=== PATIENT | male | born 1965 | race Caucasian/White ===

== ENCOUNTER → 2021-10-09 07:44 | Outpatient (CLI) | payer OTHER, MEDICAID, SELFPAY | PROVIDERS: Visit Provider Student in an Organized Health Care Education/Training Program | DX: J02.9 Acute pharyngitis, unspecified (principal) | CPT/HCPCS: 87070; 87880 ==

== ENCOUNTER 2021-10-16 17:16 | Observation (INO) | payer OTHER, MEDICAID, SELFPAY ==
[2021-10-16] VITALS (7 sets, daily range): BP systolic 151–191; BP diastolic 91–101; PULSE 66–93; RESP 18–21; TEMP 36.6–36.7; O2SAT 95–98; BMI 25.9
--- NOTE | 2021-10-16 17:27 | DI.RAD.S_ITS ---
PROCEDURE: XR CHEST 1V INDICATIONS: chest pain TECHNIQUE: One view of the chest was acquired. COMPARISON: None. FINDINGS: Surgical changes and devices: None. Lungs and pleura: Lungs are clear. No pleural effusions or pneumothorax. Mediastinum: Mediastinal contours appear normal. Heart size is normal. Bones and chest wall: No suspicious bony lesions. Overlying soft tissues appear unremarkable. IMPRESSION: No acute cardiothoracic abnormality. Dictated by: Petar Rivera M.D. on 10/16/2021 at 18:36 Approved by: Petar Rivera M.D. on 10/16/2021 at 18:37
[2021-10-16 17:58] LABS: Add Manual Diff / Slide Review NO; Basophils Absolute Auto 0 /uL (0-100); Basophils Percent Auto 0.6 % (0-2); Eosinophils Absolute Auto 100 /uL (0-450); Eosinophils Percent Auto 1.2 % (2-4); Hematocrit 43.1 % (41-53); Hemoglobin 15.3 g/dL (13.5-17.5); Lymphocytes Absolute Auto 1300 /uL (1100-4500); Lymphocytes Percent Auto 19.1 % (25-40); Mean Corpuscular HGB Conc 35.5 % (30-36); Mean Corpuscular Hemoglobin 30.3 PG (26-34); Mean Corpuscular Volume 85.3 fL (80-100); Monocytes Absolute Auto 700 /uL (0-900); Monocytes Percent Auto 9.3 % (3-14); Neutrophils Absolute Auto 4900 /uL (1500-7000); Neutrophils Percent Auto 69.8 % (50-75); Platelet Count 180 X10^3/uL (150-400); Red Blood Cell Count 5.05 X10^6/uL (4.5-5.9); Red Cell Distribution Width 13.7 % (11.6-14.8)
[2021-10-16 18:13] LABS: Alanine Aminotransferase 23 IU/L (<50); Albumin 4.4 g/dL (3.5-5.0); Albumin Globulin Ratio 1.5 (1.0-2.8); Alkaline Phosphatase 69 U/L (38-126); Aspartate Aminotransferase 30 IU/L (17-59); BUN Creatinine Ratio 22.3 (6-22); Bilirubin Total 0.5 mg/dL (0.2-1.3); Blood Urea Nitrogen 21 mg/dL (9-20); Calcium 9.2 mg/dL (8.4-10.2); Carbon Dioxide 25 mmol/L (22-32); Chloride 103 mmol/L (98-107); Creatine Kinase 102 U/L (55-170); Estimated Glomerular Filt Rate > 60 mL/min (>60); Glucose 126 mg/dL (70-100); Lipase 260 U/L (23-300); Potassium 3.9 mmol/L (3.4-5.1); Sodium 140 mmol/L (137-145); Total Protein 7.4 g/dL (6.3-8.2)
[2021-10-16 18:24] LABS: Troponin I < 0.012 ng/mL (0.01-0.034)
[2021-10-16 18:28] LABS: CKMB % Relative Index 1.6 % (1.5-5.0); Creatine Kinase MB 1.64 ng/mL (<2.37); HEMOLYSIS < 15 (0-50)
--- NOTE | 2021-10-16 18:53 | ED.CHESTPAIN ---
HPI - Chest Pain General Chief Complaint: Chest Pain Stated Complaint: chest pain Time Seen by Provider: 10/16/21 18:02 Source: patient Mode of arrival: Ambulatory Limitations: no limitations History of Present Illness HPI narrative: Patient here for exertional chest pain, occasional dizziness. No nausea or sweating. Occasional dyspnea. Currently no chest pain. Patient seen at urgent care last Monday for tonsillar abscess which he says has actually resolved. However chest discomfort he thinks it started maybe before the abscess. Father side of the family has heart disease. Patient denies any previous heart problems or stress test. Recently seen by primary care and started on losartan for high blood pressure. Has had difficulty having a controlled. This is within the last 2 weeks. No numbness tingling or weakness. Blood pressure noted on arrival. No recent illness cough cold congestion fever chills. Blood pressure improved 171/96 without intervention Related Data Previous Rx's Medication Instructions Recorded amoxicillin 500 mg-potassium 1 tab PO TID peritonsillar abscess 10/09/21 clavulanate 125 mg tablet 14 days #42 tabs (Augmentin) Allergies Allergy/AdvReac Type Severity Reaction Status Date / Time No Known Drug Allergies Allergy Verified 10/16/21 17:22 Review of Systems Review of Systems Narrative: GENERAL: Denies chills, fatigue, malaise, fever, sweats. HEENT: Denies sinus pain, ear pain, sore throat RESPIRATORY: Positive for dyspnea, negative for cough CARDIOVASCULAR: Positive for chest pain, negative for palpitations GASTROINTESTINAL: Denies nausea, vomiting, abdominal pain : Denies dysuria, frequency, hematuria MUSCULOSKELETAL: denies muscle or bony pain SKIN: Denies rash, skin lesions NEUROLOGIC: Denies weakness, numbness, positive for dizziness ROS Unobtainable: All systems reviewed & are unremarkable except as noted in HPI and below Patient History Medical History (Updated 10/16/21 @ 22:02 by MEL Robles) Hypertension, essential Surgical History (Updated 10/16/21 @ 22:02 by MEL Robles) History of elbow surgery Family History (Updated 10/16/21 @ 22:03 by MEL Robles) Father Hypertension Coronary artery disease involving autologous artery coronary bypass graft Heart attack Mother Brain aneurysm Social History household members: none Smoking Status: Never smoker alcohol intake: never Smoking Status: Never smoker Substance Use Type: does not use Exam Narrative Exam Narrative: GENERAL: in no distress, not toxic not dyspneic HEAD: Normocephalic. EYES: Pupils equal round No scleral icterus. ENT: Mucous membranes moist. NECK: Trachea midline. CARDIOVASCULAR: Regular rate and rhythm without murmurs RESPIRATORY: Clear to auscultation. Breath sounds equal bilaterally. No wheezes, rales, or rhonchi. GASTROINTESTINAL: Abdomen soft, non-tender EXTREMITIES: No gross deformities. BACK: No flank tenderness. NEURO: AOx4. SKIN: Warm and dry PSYCH: Not anxious, is cooperative Initial Vital Signs Initial Vital Signs: Vital Signs Temperature 98.1 F 10/16/21 17:22 Pulse Rate 93 H 10/16/21 17:22 Respiratory Rate 18 10/16/21 17:22 Blood Pressure 191/101 H 10/16/21 17:22 Pulse Oximetry 98 10/16/21 17:22 Oxygen Delivery Method 10/16/21 17:22 Scores HEART Score Heart Score history: Slightly Suspicious Heart Score EKG: Non-Specific repolarization disturbance Heart Score Age: 45-64 years old Heart Score risk factors: 1-2 risk factors Heart Score troponin: < or = to normal limit Heart Score Total: 3 Course Course Course Narrative: No new issues during course of stay Decision to Admit Date: 10/16/21 Decision to Admit time: 18:56 Orders Ordered: ED Orders 10/16/21 23:22 Troponin I Q6H Acetaminophen (Acetaminophen 325 Mg Tablet) 650 mg PO Q6H PRN PRN Reason: Fever/Mild Pain (1-3) Last Admin: 10/17/21 03:09 Dose: 650 mg Documented By: ENA Amoxicillin/Clavulanate Potassium (Amoxicillin/Clav 500/125 Mg) 1 tab PO TID JARRETT Melatonin (Melatonin 3 Mg Tablet) 6 mg PO BEDTIME PRN PRN Reason: Insomnia Discontinued Medications Aspirin (Aspirin 81 Mg Chew Tab) 324 mg PO NOW ONE Stop: 10/16/21 18:53 Last Admin: 10/16/21 19:06 Dose: 324 mg Documented By: RAISA Aspirin (Aspirin Ec 81 Mg Tablet) 81 mg PO DAILY JARRETT Al Hydrox/Mg Hydrox/Simethicone 20 ml/ Lidocaine HCl 15 ml 0 ml PO NOW ONE Stop: 10/16/21 21:38 Last Admin: 10/17/21 02:20 Dose: Not Given Documented By: ENA Lisinopril (Lisinopril 10 Mg Tablet) 10 mg PO DAILY JARRETT Lisinopril (Lisinopril 5 Mg Tablet) 5 mg PO NOW ONE Stop: 10/16/21 20:19 Last Admin: 10/17/21 02:20 Dose: Not Given Documented By: ENA Morphine Sulfate (Morphine 2 Mg/Ml Inj) 2 mg IV Q5MIN PRN PRN Reason: Chest Pain Nitroglycerin (Nitroglycerin 0.4 Mg Sl Tab) 0.4 mg SL [id number] PRN PRN Reason: Chest Pain Reevaluation(s) Reevaluation #1: Spoke with patient results and agrees for admission. Blood pressure has improved. No chest pain at this time. Time: 19:12 Consultations Consultation #1: Spoke with cardiology Dr. Benavidez, recommends admission for blood pressure control, serial enzymes. Echocardiogram in the morning for reasons of recent tonsillar abscess as well as chest pain. Can do hallway stress test once blood pressure is controlled in the morning. Time: 19:12 Consultation #2: Spoke with hospitalist, Chio Poole, will admit. Will try for echocardiogram in the morning and hallway stressing/stress test ambulation in the morning with blood pressure control Time: 19:46 Vital Signs Vital signs: Vital Signs - 8 hr 10/16/21 17:22 10/16/21 19:54 10/16/21 20:04 Temperature 98.1 F Pulse Rate 93 H 69 70 Respiratory Rate 18 Blood Pressure 191/101 H Pulse Oximetry 98 95 97 Oxygen Delivery Method Room Air 10/16/21 20:06 10/16/21 20:06 Temperature Pulse Rate 67 Respiratory Rate 21 Blood Pressure 156/91 H Pulse Oximetry 97 Oxygen Delivery Method Room Air MDM - Chest Pain Differential Diagnosis Differential diagnosis: Likely stable angina, unstable angina pectoris, atypical chest pain and other (Hypertensive urgency) Lab Data Result diagrams: 10/16/21 17:39 10/16/21 17:39 Labs: Lab Results 10/16/21 10/16/21 10/16/21 Range/Units 17:39 17:39 17:39 WBC 7.0 (4.5-11.0) X10^3/uL RBC 5.05 (4.5-5.9) X10^6/uL Hgb 15.3 (13.5-17.5) g/dL Hct 43.1 (41-53) % MCV 85.3 (80-100) fL MCH 30.3 (26-34) PG MCHC 35.5 (30-36) % RDW 13.7 (11.6-14.8) % Plt Count 180 (150-400) X10^3/uL Neut % (Auto) 69.8 (50-75) % Lymph % (Auto) 19.1 L (25-40) % [place] % (Auto) 9.3 (3-14) % Eos % (Auto) 1.2 L (2-4) % Baso % (Auto) 0.6 (0-2) % Neut # (Auto) 4900 (1804-5526) /uL Lymph # (Auto) 1300 (3845-5112) /uL [place] # (Auto) 700 (0-900) /uL Eos # (Auto) 100 (0-450) /uL Baso # (Auto) 0 (0-100) /uL ESR 6 (0-15) MM/HR Sodium 140 (137-145) mmol/L Potassium 3.9 (3.4-5.1) mmol/L Chloride 103 (98-107) mmol/L Carbon Dioxide 25 (22-32) mmol/L BUN 21 H (9-20) mg/dL Creatinine 0.94 (0.66-1.25) mg/dL Estimated GFR > 60 (>60) mL/min BUN/Creatinine Ratio 22.3 H (6-22) Glucose 126 H (70-100) mg/dL Calcium 9.2 (8.4-10.2) mg/dL Magnesium 2.0 (1.6-2.3) mg/dL Total Bilirubin 0.5 (0.2-1.3) mg/dL AST 30 (17-59) IU/L ALT 23 (<50) IU/L Alkaline Phosphatase 69 (38-126) U/L Total Creatine Kinase 102 (55-170) U/L CK-MB (CK-2) 1.64 (<2.37) ng/mL CK-MB (CK-2) Rel Index 1.6 (1.5-5.0) % Troponin I < 0.012 (0.01-0.034) ng/mL C-Reactive Protein (<1.0) mg/dL NT-Pro-B Natriuret Pep (<125) pg/mL Total Protein 7.4 (6.3-8.2) g/dL Albumin 4.4 (3.5-5.0) g/dL Globulin 3.0 (1.7-4.1) g/dL Albumin/Globulin Ratio 1.5 (1.0-2.8) Triglycerides (35-150) mg/dL Cholesterol (140-199) mg/dL LDL Cholesterol, Calc (<100) mg/dL HDL Cholesterol (40-60) mg/dL Lipase 260 (23-300) U/L SARS-CoV-2 (PCR) (Negative) 10/16/21 10/16/21 10/16/21 Range/Units 17:39 17:39 17:39 WBC (4.5-11.0) X10^3/uL RBC (4.5-5.9) X10^6/uL Hgb (13.5-17.5) g/dL Hct (41-53) % MCV (80-100) fL MCH (26-34) PG MCHC (30-36) % RDW (11.6-14.8) % Plt Count (150-400) X10^3/uL Neut % (Auto) (50-75) % Lymph % (Auto) (25-40) % [place] % (Auto) (3-14) % Eos % (Auto) (2-4) % Baso % (Auto) (0-2) % Neut # (Auto) (7582-4931) /uL Lymph # (Auto) (8535-1000) /uL [place] # (Auto) (0-900) /uL Eos # (Auto) (0-450) /uL Baso # (Auto) (0-100) /uL ESR (0-15) MM/HR Sodium (137-145) mmol/L Potassium (3.4-5.1) mmol/L Chloride (98-107) mmol/L Carbon Dioxide (22-32) mmol/L BUN (9-20) mg/dL Creatinine (0.66-1.25) mg/dL Estimated GFR (>60) mL/min BUN/Creatinine Ratio (6-22) Glucose (70-100) mg/dL Calcium (8.4-10.2) mg/dL Magnesium (1.6-2.3) mg/dL Total Bilirubin (0.2-1.3) mg/dL AST (17-59) IU/L ALT (<50) IU/L Alkaline Phosphatase (38-126) U/L Total Creatine Kinase (55-170) U/L CK-MB (CK-2) (<2.37) ng/mL CK-MB (CK-2) Rel Index (1.5-5.0) % Troponin I (0.01-0.034) ng/mL C-Reactive Protein < 0.5 (<1.0) mg/dL NT-Pro-B Natriuret Pep 65 (<125) pg/mL Total Protein (6.3-8.2) g/dL Albumin (3.5-5.0) g/dL Globulin (1.7-4.1) g/dL Albumin/Globulin Ratio (1.0-2.8) Triglycerides 293 H (35-150) mg/dL Cholesterol 185 (140-199) mg/dL LDL Cholesterol, Calc 86 (<100) mg/dL HDL Cholesterol 40 (40-60) mg/dL Lipase (23-300) U/L SARS-CoV-2 (PCR) (Negative) 10/16/21 Range/Units 18:21 WBC (4.5-11.0) X10^3/uL RBC (4.5-5.9) X10^6/uL Hgb (13.5-17.5) g/dL Hct (41-53) % MCV (80-100) fL MCH (26-34) PG MCHC (30-36) % RDW (11.6-14.8) % Plt Count (150-400) X10^3/uL Neut % (Auto) (50-75) % Lymph % (Auto) (25-40) % [place] % (Auto) (3-14) % Eos % (Auto) (2-4) % Baso % (Auto) (0-2) % Neut # (Auto) (8026-2610) /uL Lymph # (Auto) (0228-9596) /uL [place] # (Auto) (0-900) /uL Eos # (Auto) (0-450) /uL Baso # (Auto) (0-100) /uL ESR (0-15) MM/HR Sodium (137-145) mmol/L Potassium (3.4-5.1) mmol/L Chloride (98-107) mmol/L Carbon Dioxide (22-32) mmol/L BUN (9-20) mg/dL Creatinine (0.66-1.25) mg/dL Estimated GFR (>60) mL/min BUN/Creatinine Ratio (6-22) Glucose (70-100) mg/dL Calcium (8.4-10.2) mg/dL Magnesium (1.6-2.3) mg/dL Total Bilirubin (0.2-1.3) mg/dL AST (17-59) IU/L ALT (<50) IU/L Alkaline Phosphatase (38-126) U/L Total Creatine Kinase (55-170) U/L CK-MB (CK-2) (<2.37) ng/mL CK-MB (CK-2) Rel Index (1.5-5.0) % Troponin I (0.01-0.034) ng/mL C-Reactive Protein (<1.0) mg/dL NT-Pro-B Natriuret Pep (<125) pg/mL Total Protein (6.3-8.2) g/dL Albumin (3.5-5.0) g/dL Globulin (1.7-4.1) g/dL Albumin/Globulin Ratio (1.0-2.8) Triglycerides (35-150) mg/dL Cholesterol (140-199) mg/dL LDL Cholesterol, Calc (<100) mg/dL HDL Cholesterol (40-60) mg/dL Lipase (23-300) U/L SARS-CoV-2 (PCR) Negative (Negative) Imaging Data Chest x-ray: Radiologist's Impression: [address] [id number] ReportSigned Patient: Jacinto Colunga GMR#: [id number]: 1965Acct:[id number]/Sex: 55 / MDate of Service: 10/16/21Loc: EDAccession Number: [id number] Procedure: XR chest 1V Ordering Provider: Annetta Del Real D.O. PROCEDURE: XR CHEST 1V INDICATIONS: chest pain TECHNIQUE: One view of the chest was acquired. COMPARISON: None. FINDINGS: Surgical changes and devices: None. Lungs and pleura: Lungs are clear. No pleural effusions or pneumothorax. Mediastinum: Mediastinal contours appear normal. Heart size is normal. Bones and chest wall: No suspicious bony lesions. Overlying soft tissues appear unremarkable. IMPRESSION: No acute cardiothoracic abnormality. Dictated by: Petar Rivera M.D. on 10/16/2021 at 18:36 Approved by: Petar Rivera M.D. on 10/16/2021 at 18:37 ECG Data Interpretation: Normal sinus rhythm rate [address] elevation MDM Narrative Medical decision making narrative: Appropriate for admission for hypertensive urgency and chest pain. Will need echocardiogram for chest pain as well as recent tonsillar abscess. Reviewed with hospitalist and server service assistant and agree for treatment plan. Number holding on antibiotics at this time. Laboratory work reassuring Discharge Plan Departure Patient Disposition: Admitted as Observation Clinical Impression: Atypical chest pain, Hypertensive urgency Admit Date/Time: 10/16/21 21:05 Admit Provider: Chio Poole
[2021-10-16 19:04] LABS: COVID19 -Nasal RAPID Negative (Negative)
[2021-10-16] MEDS: ASPIRIN 81 MG CHEW TAB 324 MG PO (19:06)
[2021-10-16 20:19] LABS: C-Reactive Protein Quant < 0.5 mg/dL (<1.0)
[2021-10-16 20:35] LABS: Erythrocyte Sedimentation Rate 6 MM/HR (0-15)
[2021-10-16 20:38] LABS: Cholesterol 185 mg/dL (140-199); HDL Cholesterol 40 mg/dL (40-60); LDL Cholesterol Calculated 86 mg/dL (<100); Triglycerides 293 mg/dL (35-150)
[2021-10-16 20:52] LABS: NT-proBNP (BNP-Adult 18+) 65 pg/mL (<125)
--- NOTE | 2021-10-16 21:38 | P.HP_ITS ---
History of Present Illness History of Present Illness Date Patient Seen: 10/16/21 Time Patient Seen: 20:19 Chief complaint: chest pain Narrative: Jacinto Colunga is a 55-year-old male with a history of untreated hypertension, and recent tonsillar abscess who presented to the ED complaining of atypical chest discomfort. The patient reports that he was seen approximately 1 week ago for a tonsillar abscess he was given Augmentin and continues to take. He noted he had some mild chest discomfort at that time, believe it to be related to infection swelling and pain, it lasted only a short while resolved then re-presented approximately 3 days ago. The discomfort is mid substernal nonradiating patient describes it as mostly a burning sensation, burping helps relieve the pressure type feeling, Pepto-Bismol for couple days has improved slightly as well it does tend to be aggravated through exertional activity, he reports that he takes Tums from times time but denies any history of acid reflux, he denies any coexisting symptoms of shortness of breath, diaphoresis, dizziness, changes in vision, weakness, numbness, swelling of extremities, changes in bowel or bladder, recent falls, injury, trauma. The patient notes that he has been advised over the past 7-8 years of having hypertension of which he did not seek any treatment until approximately 2 weeks ago he was finally able to establish with a PCP who started the patient on losartan 50 mg once daily. The patient noted that he became quite dizzy and lightheaded within about 30 minutes of taking the lo sartan. 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 He notes his father had multiple stents and several heart attacks and mother currently has a brain aneurysm. No other cardiac family history. Patient takes a baby aspirin daily and herbal supplements but no other medications. Upon admit interview patient still describes having mid substernal discomfort but denies pain or any other symptoms at this time is stable and is in no distress, unable to elicit pain with palpation, or movement. Patient initially presented to the ED with a temp of 98.1?, BP 191/101, HR 93, R 18, O2 saturation 98% on room air. Patient's CBC CMP and initial troponin were all within normal limits. Patient's chest x-ray was negative for any acute cardiopulmonary processes. EKG demonstrated normal sinus rhythm with a rate of [address] or T-wave changes.?ED Consult with cardiology Dr. Benavidez, recommended admission for blood pressure control, serial enzymes.? Echocardiogram in the morning for reasons of recent tonsillar abscess as well as chest pain.? Can do hallway stress test once blood pressure is controlled in the morning. Patient admitted for atypical chest pain, and uncontrolled hypertensive urgency. Patient History Medical History (Updated 10/16/21 @ 22:02 by MEL Robles) Hypertension, essential Surgical History (Updated 10/16/21 @ 22:02 by MEL Robles) History of elbow surgery Family & Social History Family History (Updated 10/16/21 @ 22:03 by MEL Robles) Father Hypertension Coronary artery disease involving autologous artery coronary bypass graft Heart attack Mother Brain aneurysm Social History: household members none, single lives alone, works as a civil design specialist. Safety & Behavioral: Feels Safe in Current Yes Environment Been Physically Hurt or No Threatened By a Person Tobacco & Substance use: Smoking Status Never smoker alcohol intake never Substance Use Type does not use Meds Home Medications and Allergies Home Medications Medication Instructions Recorded Confirmed Type amoxicillin 500 mg-potassium 1 tab PO TID peritonsillar abscess 10/09/21 10/16/21 Rx clavulanate 125 mg tablet 14 days #42 tabs (Augmentin) Allergies Allergy/AdvReac Type Severity Reaction Status Date / Time No Known Drug Allergies Allergy Verified 10/16/21 17:22 Review of Systems Review of Systems Narrative: All 12 point systems reviewed with the patient and are negative except otherwise documented. Exam Vital Signs (past 8 hours): - 10/16/21 17:22 10/16/21 19:54 10/16/21 20:04 Temperature 98.1 F Pulse Rate 93 H 69 70 Respiratory Rate 18 Blood Pressure 191/101 H Pulse Oximetry 98 95 97 Oxygen Delivery Method Room Air 10/16/21 20:06 10/16/21 20:06 Temperature Pulse Rate 67 Respiratory Rate 21 Blood Pressure 156/91 H Pulse Oximetry 97 Oxygen Delivery Method Room Air Oxygen Delivery Method Room Air Narrative Exam Narrative: General: Patient is a well-developed, well-nourished fit male, in no distress at this time. HEENT: Normocephalic, atraumatic, extraocular muscles intact, oral pharynx is clear and mucous membranes are moist. Neck is supple and symmetric, trachea is midline, no adenopathy, no thyroid enlargement, nontender, no masses palpated. Negative for JVD Chest: Noted concave sternum (from ) without kyphoscoliosis, no nasal fla ring, retractions, or tachypneic labored breathing. Lungs: Auscultation of all lung gramajo are clear without adventitious sounds, wheezes, rhonchi, or rales. Cardio: S1 & S2 with regular rate and rhythm without murmur, rubs, or gallops, no carotid bruit, no cardiac pulsations present. Abdomen: Soft nontender, negative for organomegaly, or masses. Bowel sounds are present in all 4 quadrants without guarding or rebound, no CVA tenderness. Musculoskeletal: Muscle strength and tone are equal within normal limits, no deformity, crepitus, effusions, cyanosis, clubbing or edema present. Full range of motion intact radial and pedal pulses are normal. Skin: Warm dry and intact without rashes, ulcerations or petechiae. Neuro: Alert and orientated x3, strength is +5/5 in all extremities, sensation to touch intact, no gross deficits noted of cranial nerves. Psych: Patient has a well-kept appearance, appropriate affect, mental status attitude thought context and judgment are appropriate for age. Objective Labs Result Diagrams: 10/16/21 17:39 10/16/21 17:39 Labs: Laboratory Results - last 24 hr 10/16/21 10/16/21 10/16/21 17:39 17:39 17:39 WBC 7.0 RBC 5.05 Hgb 15.3 Hct 43.1 MCV 85.3 MCH 30.3 MCHC 35.5 RDW 13.7 Plt Count 180 Neut % (Auto) 69.8 Lymph % (Auto) 19.1 L [place] % (Auto) 9.3 Eos % (Auto) 1.2 L Baso % (Auto) 0.6 Neut # (Auto) 4900 Lymph # (Auto) 1300 [place] # (Auto) 700 Eos # (Auto) 100 Baso # (Auto) 0 ESR 6 Sodium 140 Potassium 3.9 Chloride 103 Carbon Dioxide 25 BUN 21 H Creatinine 0.94 Estimated GFR > 60 BUN/Creatinine Ratio 22.3 H Glucose 126 H Calcium 9.2 Magnesium 2.0 Total Bilirubin 0.5 AST 30 ALT 23 Alkaline Phosphatase 69 Total Creatine Kinase 102 CK-MB (CK-2) 1.64 CK-MB (CK-2) Rel Index 1.6 Troponin I < 0.012 C-Reactive Protein NT-Pro-B Natriuret Pep Total Protein 7.4 Albumin 4.4 Globulin 3.0 Albumin/Globulin Ratio 1.5 Triglycerides Cholesterol LDL Cholesterol, Calc HDL Cholesterol Lipase 260 SARS-CoV-2 (PCR) 10/16/21 10/16/21 10/16/21 17:39 17:39 17:39 WBC RBC Hgb Hct MCV MCH MCHC RDW Plt Count Neut % (Auto) Lymph % (Auto) [place] % (Auto) Eos % (Auto) Baso % (Auto) Neut # (Auto) Lymph # (Auto) [place] # (Auto) Eos # (Auto) Baso # (Auto) ESR Sodium Potassium Chloride Carbon Dioxide BUN Creatinine Estimated GFR BUN/Creatinine Ratio Glucose Calcium Magnesium Total Bilirubin AST ALT Alkaline Phosphatase Total Creatine Kinase CK-MB (CK-2) CK-MB (CK-2) Rel Index Troponin I C-Reactive Protein < 0.5 NT-Pro-B Natriuret Pep 65 Total Protein Albumin Globulin Albumin/Globulin Ratio Triglycerides 293 H Cholesterol 185 LDL Cholesterol, Calc 86 HDL Cholesterol 40 Lipase SARS-CoV-2 (PCR) 10/16/21 18:21 WBC RBC Hgb Hct MCV MCH MCHC RDW Plt Count Neut % (Auto) Lymph % (Auto) [place] % (Auto) Eos % (Auto) Baso % (Auto) Neut # (Auto) Lymph # (Auto) [place] # (Auto) Eos # (Auto) Baso # (Auto) ESR Sodium Potassium Chloride Carbon Dioxide BUN Creatinine Estimated GFR BUN/Creatinine Ratio Glucose Calcium Magnesium Total Bilirubin AST ALT Alkaline Phosphatase Total Creatine Kinase CK-MB (CK-2) CK-MB (CK-2) Rel Index Troponin I C-Reactive Protein NT-Pro-B Natriuret Pep Total Protein Albumin Globulin Albumin/Globulin Ratio Triglycerides Cholesterol LDL Cholesterol, Calc HDL Cholesterol Lipase SARS-CoV-2 (PCR) Negative Assessment & Plan Assessment & Plan narrative: Jacinto Colunga is a 55-year-old male with a history of uncontrolled hypertension for approximately 8 years with a recent history of peritonsillar abscess who presented with atypical chest pain/discomfort being admitted for observation overnight for risk stratification and cardiac workup. 1. Atypical substernal chest pain (pressure), acute, present on admission HEART Score-3 -patient denies actual chest pain but states he has a burning chest discomfort suspect more likely acid reflux. -GI cocktail ordered now-for assessment of symptoms -patient placed on telemedicine, ASA given in ED. -trend troponins x3 -if patient remains asymptomatic stable, in no changes to cardiac enzymes or cardiac monitoring will have the nurse complete a HALLWAY STRESS TEST per Dr. Whelan recommendation. If complete work up is negative tomorrows echo may be canceled and the patient discharged. -echo ordered for the morning- due to peritonsillar abscess- per cardiology recommendations 2. Hypertensive urgency, in the setting of uncontrolled hypertension, acute, present on admission -patient was initiated on losartan approximately 2 weeks ago patient found that he was having significant dizziness, will change patient to trial lisinopril. Provided patient education regarding medications. -5 mg lisinopril ordered now, initiate 10 mg lisinopril q.day tomorrow. -recommended patient follow-up with primary care within 2 weeks 3. Peritonsillar abscess, acute, present on admission -patient is stable airways patent without compromise. -patient to continue on Augmentin and follow up with PCP. Code status:Full Surrogate decision maker: Mother Maddie DUTTON PCR:Negative DVT/VTE prophylaxis: Lovenox and SCDs Disposition: Patient admitted for observation expected length of stay less than 2 midnights I have utilized all available immediate resources to obtain, update, or review the patient's current medications. I confirmed that the patient's advanced care plan is present, Code status is documented and/or surrogate decision maker is listed in the patient's medical record. Time Spent With Patient Critical Care time: I spent a total of [] minutes of critical care time on this patient's care today; this time is exclusive of procedural time. Quality VTE Deep Vein Thrombosis/Pulmonary Embolism Present on Admission: No
--- NOTE | 2021-10-16 21:58 | DI.ECHO.S_ITS ---
[facility] +---------+ : : [address] : [address] [address] : : : : [id number] : : : : Phone: [phone]---------+ Echocardiogram Report + + :Name: SANCHO ADRIAN Study Date: 10/17/2021 Height: 71 in : :[facility] ReadingLocation: Weight: 186 lb : : Gender: Male BSA: 2.0 m2 : :: 1965 Age: 55 yrs BP: 152/87 mmHg: :Reason For Study: Chest pain : :Ordering Physician: MCKINLEY, : :MAHNAZ Performed By: John Fitch : :Referring: MAHNAZ SEN : + + Interpretation Summary The left ventricle is normal in size. Left ventricular systolic function is normal. The ejection fraction is estimated to be 55-60%. There are no obvious focal wall motion abnormalities noted but poor endocardial definition reduces the sensitivity for the detection of such. The right ventricle grossly appears normal in size with probable normal systolic function. Pulmonary artery pressures cannot be estimated because of the lack of a measurable TR jet velocity. There is no significant valvular heart disease. The aortic root is mildly dilated. There is a small loculated pericardial effusion located anteriorly. Procedure: A two-dimensional transthoracic echocardiogram with color flow and Doppler was performed. The study quality was technically difficult. The apical views were not obtained. Images were not obtained from all of the standard acoustic windows due to the limited scope of the study. There is no prior echocardiogram noted for this patient. The patient was in normal sinus rhythm during the exam. Left Ventricle: The left ventricle is normal in size. Left ventricular wall thickness is at the upper limits of normal. Left ventricular systolic function is normal. The ejection fraction is estimated to be 55-60%. There are no obvious focal wall motion abnormalities noted but poor endocardial definition reduces the sensitivity for the detection of such. Diastolic function could not be accurately assessed due to unobtainable data. Right Ventricle: The right ventricle grossly appears normal in size with probable normal systolic function. Atria: The left atrium is not well visualized. The left atrium grossly appears normal in size. Right atrium not well visualized. The right atrium grossly appears normal in size. The interatrial septum grossly appears intact with no obvious evidence for an atrial septal defect. Mitral Valve: The mitral valve is not well visualized. Aortic Valve: The aortic valve is not well visualized. No aortic regurgitation is present. Tricuspid Valve: The tricuspid valve is not well visualized. Pulmonary artery pressures cannot be estimated because of the lack of a measurable TR jet velocity. Pulmonic Valve: The pulmonic valve is not well seen, but is grossly normal. There is a trace or physiologic amount of pulmonic regurgitation. There is no significant valvular heart disease. Great Vessels: The aortic root is mildly dilated. The dimensions of the ascending aorta are normal. The IVC is of normal diameter and collapses greater than 50% with a sniff. This suggests a low right atrial pressure of 3 mm Hg. Pericardium/ Pleura There is a small loculated pericardial effusion. There are no echocardiographic indications of cardiac tamponade. MMode/2D Measurements & Calculations LVIDd: 4.2 cm LVOT diam: 2.4 cm LVIDs: 3.0 cm Ao root diam: 4.1 cm FS: 30.4 % asc Aorta Diam: 3.1 cm IVSd: 1.2 cm LVPWd: 0.80 cm LV oritz. diameter/BSA (cm/m^2): 2.1 LV sys. diameter/BSA (cm/m^2): 1.4 Reading Physician:02:57 PM
[2021-10-16 23:51] LABS: Troponin I < 0.012 ng/mL (0.01-0.034)
[2021-10-17] VITALS (7 sets, daily range): BP systolic 130–152; BP diastolic 68–94; PULSE 63–75; RESP 15–18; TEMP 36.5–37.1; O2SAT 98–99
[2021-10-17] MEDS: ACETAMINOPHEN 325 MG TABLET 650 MG PO (03:09)
[2021-10-17] MEDS: AMOXICILLIN/CLAV 500/125 MG 1 TAB PO ×2 (09:00→14:24)
[2021-10-17] MEDS: CALCIUM CARBONATE 500 MG TAB 1000 MG PO (09:47)
--- NOTE | 2021-10-17 10:40 | CM.DANOTE ---
DCP Assessment: Payor: [employer] PCP: Fariba Shore MD Pt is a 55 y.o. M who presented to the ED with complaints of chest pain and occasional dizziness. Pt does not have any history of chest pain. Pt was previously seen at urgent care for a tonsillar abscess which pt states has resolved. Pt has a family history of heart disease. Pt denies any past history of cardiac issues. Pt was recently seen at PCP and started on losartan for hypertenstion. Pt was admitted under observation for further management and evaluation of symptoms. ECHO ordered. DCP met with pt this morning to discuss discharge needs. Pt sitting up in bed. DCP introduced herself and role. Pt states that he lives alone in a one story house in [place]. Pt states he is independent at baseline and currently drives POV. Pt denies DME use. Pt states that he has family in [facility]. Pt denies any need for resources at this time. DCP does not identify any needs. White board updated. Instructed to call. Pt thankful for discussion. P: Once patient has ECHO and is deemed medically stable, pt to discharge home via POV. Chandni Puente RN/NAM Discharge Planning/Care Management CM Discharge Assessment Start: 10/17/21 09:24 Freq: Status: Active Protocol: Document 10/17/21 09:24 SHASHA (Rec: 10/17/21 09:25 SHASHA [id number]) Discharge Planning Assessment Assigned Machine Technician Chandni Puente RN/NAM Advance Directives? No History Provided By Patient,Medical Record Prior Living Arrangements House Household Members none Type of transporation used prior to Drives own vehicle admit Independent with ADL's Yes Is patient alert and oriented? Yes Caregiver for Another No Barriers to Discharge No Discharge Plan Home Referrals Initiated None needed Whiteboard Updated in Patient Room with Yes name and ext. # of Machine Technician Review Status In Process Please Provide Date Initial DC 10/17/21 Assessment Was Performed Next Review Type Continued Stay Review
[2021-10-17 11:06] LABS: Hemoglobin A1C% w Est Avg Glu 5.2 % (4.0-6.0)
--- NOTE | 2021-10-17 16:36 | PC.NURSE ---
Pt is dressed and ready for discharge home. Denies pain or chest pain or dizziness. IV and Tele have been removed. Went over d/c instructions with Pt -discussed d/c meds, time of last dose, reminded Pt to get up slowly from chair or bed to prevent dizziness or hypotension, reviewed stroke education, discussed heart healthy diet, reminded Pt to take his full course of abx as ordered and to follow up with his PCP next week and have her schedule an outpatient stress test. Pt denies further questions and was taken out via w/c to pov by SECURITY INSTALLATION TECHNICIAN with all belongings. Pt is driving himself and has not had bp meds at this point today.
--- NOTE | 2021-10-17 19:41 | PM.DS.1 ---
History of Present Illness History of Present Illness Date Patient Seen: 10/17/21 Chief complaint: chest pain Narrative: Per admission history and physical: Jacinto Colunga is a 55-year-old male with a history of untreated hypertension, and recent tonsillar abscess who presented to the ED complaining of atypical chest discomfort.? The patient reports that he was seen approximately 1 week ago for a tonsillar abscess he was given Augmentin and continues to take. He noted he had some mild chest discomfort at that time, believe it to be related to infection swelling and pain, it lasted only a short while resolved then re-presented approximately 3 days ago.? The discomfort is mid substernal nonradiating patient describes it as mostly a burning sensation, burping helps relieve the pressure type feeling, Pepto-Bismol for couple days has improved slightly as well it does tend to be aggravated through exertional activity, he reports that he takes Tums from times time but denies any history of acid reflux, he denies any coexisting symptoms of shortness of breath, diaphoresis, dizziness, changes in vision, weakness, numbness, swelling of extremities, changes in bowel or bladder, recent falls, injury, trauma.? The patient notes that he has been advised over the past 7-8 years of having hypertension of which he did not seek any treatment until approximately 2 weeks ago he was finally able to establish with a PCP who started the patient on losartan 50 mg once daily.? The patient noted that he became quite dizzy and lightheaded within about 30 minutes of taking the losartan.? The patient does not smoke, drink, or use recreational substances, is physically active works as a marketing business analyst, has no cardiac or pulmonary history.? He notes his father had multiple stents and several heart attacks and mother currently has a brain aneurysm. No other cardiac family history.? Patient takes a baby aspirin daily and herbal supplements but no other medications.? Upon admit interview patient still describes having mid substernal discomfort but denies pain or any other symptoms at this time is stable and is in no distress, unable to elicit pain with palpation, or movement. Patient initially presented to the ED with a temp of 98.1?, BP 191/101, HR 93, R 18, O2 saturation 98% on room air.? Patient's CBC CMP and initial troponin were all within normal limits.? Patient's chest x-ray was negative for any acute cardiopulmonary processes.? EKG demonstrated normal sinus rhythm with a rate of [address] or T-wave changes.?ED Consult with cardiology Dr. Benavidez, recommended admission for blood pressure control, serial enzymes.? Echocardiogram in the morning for reasons of recent tonsillar abscess as well as chest pain.? Can do hallway stress test once blood pressure is controlled in the morning.? Patient admitted for atypical chest pain, and? uncontrolled hypertensive urgency. Discharge Providers Provider Date of admission: 10/16/21 21:05 Discharge Date: 10/17/21 Primary care physician: DAVINA More Discharge provider: Juanita Andres MD Summary Hospital Course Discharge Diagnosis: Atypical chest pain, resolved Hypertensive urgency, improved Tonsillar infection (likely not abscess), present on admission, ongoing antibiotic hypertriglyceridemia Hyperglycemia, with normal hemoglobin A1c of 5.2% Hospital Course: Patient is a generally healthy middle-aged gentleman who has had hypertension for quite some time. He had not treated it despite being aware of it for the last 70 years. He developed a sore throat approximately 10 days ago. It became progressively worse and he ultimately went to the ER when he noted his uvula was inflamed. He did not undergo any imaging but was told there was concern for a peritonsillar abscess. He was placed on Augmentin and discharged from the emergency department. He notes at the onset of the sore throat and jaw pain associated with it he did notice a bit of chest tightness when he was raking. After being placed on Augmentin, he noticed increasing reflux symptoms. He was needing to drink boni chip, taking Tums, and burping a bit more. Yesterday, he notes he continued to suffer some discomfort. He attempted to lay down for a nap but states he simply could not get comfortable and ultimately came to the ER. Cardiac enzymes were negative, EKG did not reveal any concerning findings for ischemia. He was admitted with plans for an echocardiogram for further risk stratification. Echocardiogram was performed on the day following admission and revealed no wall motion abnormalities. He did have an elevated glucose, nonfasting but hemoglobin A1c within normal limits. Lipid panel was performed and showed triglyceride level of 293 but remainder of his lipids were within normal limits. Lipase was also normal. Patient continued to have some generalized discomfort overnight. He found relief when sitting upright and having boni chip. It was felt most likely he had reflux symptoms related to Augmentin treatment. He had reassuring findings with his atypical chest pain in that his enzymes were negative, EKG nonischemic, and he had a normal echocardiogram. Patient is discharging home today with plans for follow-up with his PCP. He will be referred for an outpatient exercise treadmill test. He is encouraged to follow up for any recurrent symptoms. He did have difficulty tolerating losartan which was recently prescribed for his hypertension. 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 Therefore it was felt a diuretic or beta-abraham might be less desirable in terms of side effects. He was placed on low-dose lisinopril 5 mg daily at discharge. Advised he could cut that in half and take it b.i.d. if need be. He is encouraged to monitor his blood pressures and follow up with his primary care provider. Exam Vital Signs (past 8 hours): - 10/17/21 15:00 10/17/21 15:00 Temperature 98.8 F Pulse Rate 75 Respiratory Rate 18 Blood Pressure 130/94 H Pulse Oximetry 98 98 Oxygen Delivery Method Room Air Oxygen Flow Rate 0 0 Oxygen Delivery Method Room Air Oxygen Flow Rate 0 Narrative Exam Narrative: GEN: Very pleasant middle-aged male, Alert and oriented x 3, NAD HEENT:NC, Face symmetric CHEST: Respiratory excursions symmetric, CTAB CV: RRR, no M/R/G ABD: Soft, NT/ND, BT present in all 4 quadrants, no organomegaly or masses EXTR: warm, well perfused, no C/C/E SKIN: warm and dry, no rash NEURO: Alert and oriented x 3, nonfocal Objective Labs Result Diagrams: 10/16/21 17:39 10/16/21 17:39 Labs: Laboratory Results - last 24 hr 10/16/21 10/16/21 10/16/21 17:39 17:39 17:39 ESR 6 Hemoglobin A1c Troponin I C-Reactive Protein < 0.5 NT-Pro-B Natriuret Pep Triglycerides 293 H Cholesterol 185 LDL Cholesterol, Calc 86 HDL Cholesterol 40 10/16/21 10/16/21 10/17/21 17:39 23:22 10:49 ESR Hemoglobin A1c 5.2 Troponin I < 0.012 C-Reactive Protein NT-Pro-B Natriuret Pep 65 Triglycerides Cholesterol LDL Cholesterol, Calc HDL Cholesterol [facility] Medical History (Updated 10/16/21 @ 22:02 [facility] Hypertension, essential Surgical History (Updated 10/16/21 @ 22:02 [facility] History of elbow surgery Family History (Updated 10/16/21 @ 22:03 [facility] Father Hypertension Coronary artery disease involving autologous artery coronary bypass graft Heart attack Mother Brain aneurysm Social History household members: none Smoking Status: Never smoker alcohol intake: never Discharge Plan Discharge Plan Patient Disposition: Home Provider Discharge Comment: Monitor your blood pressures twice a day. Keep a log and bring it to your next doctor's appointment Follow-up with your PCP next week to get referred for an Exercise Treadmill Test Additionally, follow-up with your PCP regarding your elevated triglycerides (and to get results of your Hemoglobin A1C (diabetes) test) Take lisinopril 5 mg daily (stop the losartan). If you feel as though it is making you woozy/dizzy/lightheaded, try 1/2 tablet twice daily. Take Pepcid AC or Prilosec for the next 2 weeks to help with the reflux symptoms you've been having Discharge orders & Medications Prescriptions: New lisinopril 5 mg tablet 5 mg PO DAILY Qty: 30 0RF Continued amoxicillin-pot clavulanate [Augmentin] 500-125 mg tablet 1 tab PO TID 14 Days Qty: 42 0RF Medication counseling provided by Pharmacist: No Follow up/Referrals: Fariba Shore ARNP [Primary Care Provider] - Diet/Activity/Treatments Diet: Diet as Tolerated and Regular Activity: As tolerated Oxygen: N/A Visit Report/Discharge Packet Instructions: Essential Hypertension, DI for Atypical Chest Pain, Lisinopril Discharge Data Primary Care Provider: Fariba Shore Attending Provider: Chio Poole Quality VTE Deep Vein Thrombosis/Pulmonary Embolism Present on Admission: No
== END 2021-10-17 16:40 | disposition home or self-care (01) ==
LOC: ED 20:20 → AC 21:06
PROVIDERS: Emergency Medicine; Family Medicine; Admitting Provider Nurse Practitioner Family; Emergency Provider Emergency Medicine; PCP Nurse Practitioner Family; Visit Provider Nurse Practitioner Family
DX: R07.89 Other chest pain (principal); I16.0 Hypertensive urgency; I10 Essential (primary) hypertension; Z20.822 Contact with and (suspected) exposure to COVID-19; J03.90 Acute tonsillitis, unspecified; E78.1 Pure hyperglyceridemia
CPT/HCPCS: 36415; 71045; 80053; 80061; 82550; 82553; 83036; 83690; 83735; 83880; 84484; 85025; 85651; 86140; 87635; 93005; 93306; 99284; C9803; G0378